=== PATIENT | male | born 1975 | race African-American/Black ===

== ENCOUNTER 2019-12-30 12:12 | Emergency (ER) | payer OTHER ==
[~2019-12-30] VITALS: Ht 195.6 cm; Wt 118.4 kg
[2019-12-30 14:37] VITALS: BP 182/116
== END 2019-12-30 14:37 | disposition home or self-care (01) ==
LOC: ER 12:12
DX: S06.0X0A Concussion without loss of consciousness, initial encounter (principal); F17.210 Nicotine dependence, cigarettes, uncomplicated; W22.09XA Striking against other stationary object, initial encounter; Y93.89 Activity, other specified; Y92.512 Supermarket, store or market as the place of occurrence of the external cause; Y99.8 Other external cause status